=== PATIENT | female | born 1990 | race Two or more races ===

== ENCOUNTER 2023-04-07 08:27 | Emergency (ER) | payer OTHER ==
[~2023-04-07] VITALS: Ht 175.3 cm; Wt 59.0 kg
[2023-04-07] MEDS ORDERED: ONDANSETRON HCL 2 MG/ML VIAL IV ONE (09:15)
[2023-04-07 09:37] LABS: HEMATOCRIT 37.7 % (36.0-45.00); HEMOGLOBIN 12.7 g/dL (12.0-15.00); MEAN CELL VOLUME 84.4 fL (80.00-100.00); MEAN CORPUSCULAR HEMOGLOBIN 28.4 pg (27.00-32.0); MEAN CORPUSCULAR HGB CONC 33.7 g/dl (32.0-36.0); PLATELET COUNT 246 K/uL (150-450); RED BLOOD COUNT 4.46 M/uL (4.00-6.00); RED CELL DISTRIBUTION WIDTH 14.1 % (11.5-14.5)
[2023-04-07 09:48] LABS: PH,URINE 5.5 (5.0-8.0); URINE APPEARANCE Cloudy; URINE BILIRRUBIN Negative (NEGATIVE); URINE BLOOD Large; URINE COLOR Dark Yellow; URINE GLUCOSE Negative (NEGATIVE); URINE LEUKOCYTE Small; URINE NITRATE Negative; URINE PROTEIN 30 (NEGATIVE)
[2023-04-07 09:51] LABS: URINE BACTERIA 3211.6 uL (0.0-1933); URINE EPITHELIAL CELLS 42.2 uL (0.0-38.8); URINE RBC 411.3 uL (0.0-20.8); URINE WBC 110.2 uL (0.0-23.2)
== END 2023-04-07 14:25 | disposition home or self-care (01) ==
LOC: ER 08:28
PROVIDERS: General Practice
DX: O20.8 Other hemorrhage in early pregnancy (principal); Z3A.01 Less than 8 weeks gestation of pregnancy